=== PATIENT | male | born 1995 | race Caucasian/White ===

== ENCOUNTER 2024-05-10 05:17 | Emergency (ER) | payer MEDICAID ==
[~2024-05-10] VITALS: Ht 175.3 cm; Wt 61.4 kg
[2024-05-10] MEDS: bacitracin 15gm ointment TP ONE (05:33)
[2024-05-10] MEDS: LIDOcaine 1% W/epiNEPHrine 1:100,000 20ml vial IJ ONE (05:33)
[2024-05-10] MEDS: TETanus/Pertussis (Acell)/Diphther VAC/PF (Tdap-Adult) 0.5ml syringe IMVAC ONE (05:35)
[2024-05-10 06:18] VITALS: BP 128/82; PULSE 99; RESP 18; TEMP 98.9; O2SAT 99
== END 2024-05-10 06:19 | disposition home or self-care (01) ==
LOC: ER 05:18
DX: S61.412A Laceration without foreign body of left hand, initial encounter (principal); W45.8XXA Other foreign body or object entering through skin, initial encounter; Y93.89 Activity, other specified; Y92.89 Other specified places as the place of occurrence of the external cause; Y99.8 Other external cause status
CPT/HCPCS: 12002; 90471; 90715; 99283; J3490; J7030; 12001; A6446; A6449